=== PATIENT | male | born 1990 | race Caucasian/White ===

== ENCOUNTER 2017-02-20 17:16 | Emergency (ER) | payer BC ==
[2017-02-20 17:25] VITALS: RESP 18; TEMP 98.2
--- NOTE | 2017-02-20 17:34 | EDPHY ---
H & P Time Seen by Provider: 02/20/17 17:27 HPI/ROS: CHIEF COMPLAINT: Left great toe laceration HISTORY OF PRESENT ILLNESS: 26-year-old immunocompetent male with up-to-date tetanus arrives via private vehicle complaining of acute left great toe flap laceration after he was walking with sandals in [place] and his foot impacted a broken bottle. Occurred shortly prior to arrival. He is able to bear weight. PHYSICAL EXAM (Prior to examination, patient consented to physical exam, hands were washed and my usual and customary physical exam procedures followed) 1) GENERAL: Well-developed, well-nourished, alert and oriented. Appears to be in no acute distress. 2) HEAD: Normocephalic 3) HEENT: sclera anicteric 4) LUNGS: Breathing comfortably. 5) SKIN: the left great toe distal aspect superficial skin flap of nonviable tissue. 6) MUSCULOSKELETAL: no underlying osseous pain. Capillary refill less than 2 seconds 7) NEUROLOGIC: Full sensation Smoking Status: Never smoked Constitutional: Initial Vital Signs Temperature (C) 36.8 C 02/20/17 17:23 Heart Rate 88 02/20/17 17:23 Respiratory Rate 18 02/20/17 17:23 Blood Pressure 146/100 H 02/20/17 17:23 O2 Sat (%) 99 02/20/17 17:23 O2 Delivery Mode Room Air Allergies/Adverse Reactions: No Known Allergies Allergy (Unverified 02/20/17 17:22) Home Medications: Medication Instructions Recorded NK [No Known Home Meds] 02/20/17 MDM/Departure - MDM Imaging: I viewed and interpreted images myself Procedures: Procedure: Wound management . The left great toe was anesthetized using 0.5% bupivicaine without epinephrine digital nerve block. After anesthetic administered the patient was observed for a period of time and had no apparent adverse effects. The wound was cleaned, prepped, draped in normal sterile fashion and explored to its base. No foreign body seen, no foreign bodies palpated. The piece of nonviable tissue was debrided by myself and subsequently dressed with antibiotic ointment, sterile dressing by ER staff. ED Course/Re-evaluation: Re-evaluation with serial exams. Neurovascularly intact. Wound has been dressed with antibiotic ointment and sterile dressing. Recommend elevation. Discussed his imaging results showing no radiopaque foreign body no fracture. I do not think that prophylactic antibiotics currently indicated in this immunocompetent male. - Depart Disposition: Home, Routine, Self-Care Clinical Impression: Left great toe skin avulsion Condition: Good Instructions: Skin Avulsion (ED) Additional Instructions: Return to the ER if you develop redness, swelling, discharge, warmth to the wound, red streaks going up your leg, or any other symptoms that concern you. Referrals: Follow-up, with a primary care provider in [facility] [Other] - 02/22/17
[2017-02-20 18:37] VITALS: BP 140/81; PULSE 65; O2SAT 96
== END 2017-02-20 18:37 | disposition home or self-care (01) ==
PROC: 3E0T3BZ Introduction of Anesthetic Agent into Peripheral Nerves and Plexi, Percutaneous Approach (ICD-10-PCS; principal; 2017-02-20)
DX: S91.101A Unspecified open wound of right great toe without damage to nail, initial encounter (principal); W22.8XXA Striking against or struck by other objects, initial encounter; Y99.8 Other external cause status; Y93.01 Activity, walking, marching and hiking